=== PATIENT | male | born 1985 | race Hispanic/Latino ===

== ENCOUNTER 2017-12-10 13:23 | Emergency (ER) | payer SELFPAY ==
[2017-12-10] MEDS ORDERED: predniSONE 20 MG TAB ONE (13:53)
[2017-12-10] MEDS ORDERED: Fentanyl 100 MCG/2 ML VIAL ONE (13:53)
[2017-12-10] MEDS ORDERED: Ondansetron ODT 4 MG TAB ONE (13:53)
== END 2017-12-10 14:30 | disposition home or self-care (01) ==
LOC: MADERS 13:23
DX: M25.511 Pain in right shoulder (principal)
CPT/HCPCS: 96372; J3010; J7506; Q0162